=== PATIENT | male | born 1950 | race Caucasian/White ===

== ENCOUNTER 2020-10-20 10:25 | Emergency (ER) | payer MEDICARE, OTHER ==
[2020-10-20 10:54] LABS: #Basophils 0.1 thou/uL (0.0-0.2); #Eosinphils 0.4 thou/uL (0.0-0.7); #Lymphocytes 0.9 thou/uL (1.20-3.40); #Monocytes 0.6 thou/uL (0.11-0.59); #Neutrophils 6.3 thou/uL (1.40-6.50); %Basophils 1.4 % (0.0-1.0); %Eosinophils 4.3 % (0.0-10.0); %Lymphocytes 10.7 % (21.0-51.0); %Monocytes 7.7 % (0.0-10.0); %Neutrophils 75.9 % (42.0-75.0); Hemoglobin 13.2 g/dL (14.0-18.0); Mean Corpuscular HGB CONC 32.3 g/dL (32.0-36.0); Mean Corpuscular Hemoglobin 30.5 pg (27.0-31.0); Mean Corpuscular Volume 94.3 fL (78.0-98.0); Mean Platelet Volume 6.7 fL (7.4-10.4); Platelet Count 264 thou/uL (130-400); RBC Distribution Width 12.2 % (11.5-14.5); Red Blood Cell (RBC) Count 4.34 mill/uL (4.70-6.10); White Blood Cell (WBC) Count 8.3 thou/uL (4.8-10.8)
[2020-10-20] MEDS ORDERED: Aspirin Chewable 81 MG TAB ONE (11:06)
[2020-10-20 11:10] LABS: ALT (SGPT) 78 U/L (8-55); AST (SGOT) 51 U/L (5-34); Albumin 3.7 g/dL (3.4-4.8); Alkaline Phosphatase 168 U/L (40-110); Anion Gap 16 mmol/L (10-20); BUN (Urea Nitrogen) 20 mg/dL (8.4-25.7); Calc. Creatinine Clearance 0 mL/min (70-130); Calcium 9.3 mg/dL (7.8-10.44); Carbon Dioxide 21 mmol/L (23-31); Chloride 103 mmol/L (98-107); Globulin 3.9 g/dL (2.4-3.5); Glucose 113 mg/dL (80-115); Potassium 3.8 mmol/L (3.5-5.1); Protein, Total 7.6 g/dL (5.8-8.1); Sodium 136 mmol/L (136-145)
[2020-10-20] MEDS ORDERED: Iopamidol 370 76% 100 ML VIAL ONE (11:20)
[2020-10-20 11:36] LABS: Bilirubin Small (Negative); Blood, Urine Trace (Negative); Clarity Clear (Clear); Glucose, Urine (Dipstick) Negative (Negative); Ketone, Urine Negative (Negative); Leukocyte Negative (Negative); Nitrite Negative (Negative); Protein, Urine (Dipstick) Trace mg/dL (Neg-Trace); Specific Gravity, Urine 1.025 (1.005-1.030); pH, Urine 5.5 (5.0-9.0)
[2020-10-20] MEDS ORDERED: Dexamethasone 4 mg/ml Vial ONE ×2 (11:37)
[2020-10-20 11:42] LABS: Bacteria/HPF None Seen HPF (None Seen); RBC/HPF 0-3 HPF (0-3); Squamous Epithelial 0-3 HPF (0-3); WBC/HPF None Seen HPF (0-3)
[2020-10-20] MEDS ORDERED: Sodium Chloride 0.9% 100 ML ONE (12:16)
[2020-10-20] MEDS ORDERED: Cefepime 2 GM VIAL ONE (12:16)
[2020-10-20] MEDS ORDERED: Enoxaparin Sodium 100 MG/ML SYRINGE ONE (12:16)
--- NOTE | 2020-10-20 13:53 | RAD ---
PORTABLE CHEST: DATE: 10/20/2020. FINDINGS: An AP portable film at 1058 is compared with the prior study dated 09/28. There is some increase of t he infiltrates through the lungs compared to the prior exam. Before they were more interstitial in n ature and now they are a combination of interstitial and alveolar. Coverage of infiltrates is worse in the lower halves of the chest. The heart size is stable, being borderline in size. There are no large effusions. IMPRESSION: Worsening infiltrates since 09/28/2020. In the proper clinical context, COVID might be a consideratio n. POS: HOME
--- NOTE | 2020-10-20 14:01 | CT ---
CT ANGIO OF THE CHEST: DATE: 10/20/2020. FINDINGS: Spiral CT of the chest was done for evaluation of this patient with shortness of breath, parenchymal disease, and an elevated D-Dimer. Diffuse interstitial and ground-glass infiltrates are present in all lobes and it is severe in degree . There are a few areas of the lungs that are unaffected. There is moderately good opacification of the central and 1st or 2nd branching vessels of the pulmonary arteries. There were no filling defec ts here to suggest large emboli. The contrast density in the more peripheral vessels was insufficien t to be certain. There were a few small defects seen in some of the lower lobe vessels, but the cont rast density was less than optimal, so the findings here are more indeterminate. There may or may not be a few small clots present. No effusions are seen. Some mediastinal and hilar adenopathy was noted. The upper abdomen was unrem arkable. IMPRESSION: 1. No evidence for pulmonary embolism in the large to medium-sized branches. See comments above. 2. 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 Findings discussed with Dr. Cheung at 1211 on 10/20/2020. CODE CR POS: HOME
[2020-10-20] MEDS ORDERED: Benzonatate 100 MG CAP ONE (20:36)
== END 2020-10-20 20:58 | disposition short-term general hospital (02) ==
LOC: BURERS 10:25
DX: U07.1 COVID-19 (principal); R79.1 Abnormal coagulation profile; I10 Essential (primary) hypertension; E03.9 Hypothyroidism, unspecified; Z79.899 Other long term (current) drug therapy; Z79.82 Long term (current) use of aspirin
CPT/HCPCS: 36415; 71045; 71275; 80053; 81003; 81015; 83605; 83880; 84484; 85025; 85379; 87040; 93005; 94760; 96365; 96367; 96372; 96375; J0692; J1100; J1650; J1956; J3490; Q9967

== ENCOUNTER 2022-09-11 10:34 | Emergency (ER) | payer MEDICARE, OTHER | END 2022-09-11 12:22 | disposition home or self-care (01) | LOC: BURERS 10:34 | DX: J18.9 Pneumonia, unspecified organism (principal); I10 Essential (primary) hypertension; E03.9 Hypothyroidism, unspecified | CPT/HCPCS: 71046 ==

== ENCOUNTER 2024-11-15 20:05 | Emergency (ER) | payer MEDICARE, OTHER ==
[2024-11-15] MEDS ORDERED: Boostrix 0.5 ML (Tdap) VIAL (>/=7 yrs of age) ONE (20:45)
== END 2024-11-15 21:11 | disposition home or self-care (01) ==
LOC: BURERS 20:05
DX: S60.041A Contusion of right ring finger without damage to nail, initial encounter (principal); I10 Essential (primary) hypertension; E03.9 Hypothyroidism, unspecified; Z79.890 Hormone replacement therapy; Z79.82 Long term (current) use of aspirin; Z79.899 Other long term (current) drug therapy; Z23 Encounter for immunization; W22.8XXA Striking against or struck by other objects, initial encounter
CPT/HCPCS: 90471; 90715